=== PATIENT | female | born 1960 | race Caucasian/White ===

== ENCOUNTER → 2019-03-12 15:19 | Outpatient (CLI) | payer OTHER, MEDICAID, SELFPAY ==
--- NOTE | 2019-03-12 15:22 | DI.RAD.S_ITS ---
PROCEDURE: XR FOOT LT MIN 3V INDICATIONS: L 5th toe pain and swelling TECHNIQUE: The views of the foot were acquired. COMPARISON: None. FINDINGS: Bones: There is an oblique fracture involving the fifth proximal phalanx with no significant displacement. No suspicious bony lesions. Bipartite medial sesamoid. Soft tissues: No tibiotalar joint effusion. Achilles tendon appears normal. IMPRESSION: Nondisplaced oblique fracture of the fifth proximal phalanx. Dictated by: Agnes Barnes M.D. on 03/12/2019 at 16:05 Approved by: Agnes Barnes M.D. on 03/12/2019 at 16:07
== END ==
PROVIDERS: PCP Hospitalist; Visit Provider Hospitalist
DX: S92.515A Nondisplaced fracture of proximal phalanx of left lesser toe(s), initial encounter for closed fracture (principal); X58.XXXA Exposure to other specified factors, initial encounter
CPT/HCPCS: 73630

== ENCOUNTER → 2021-03-27 07:34 | Outpatient (CLI) | payer OTHER, MEDICAID, SELFPAY ==
[2021-03-27 09:24] LABS: Cholesterol 246 mg/dL (140-199); Glucose 94 mg/dL (70-100); HDL Cholesterol 110 mg/dL (40-60); LDL Cholesterol Calculated 127 mg/dL (<100); Triglycerides 44 mg/dL (35-150)
== END ==
PROVIDERS: PCP Family Medicine; Referring Provider Family Medicine; Visit Provider Family Medicine
DX: Z00.00 Encounter for general adult medical examination without abnormal findings (principal)
CPT/HCPCS: 36415; 80061; 82947

== ENCOUNTER 2023-06-24 09:00 | Outpatient (RCR) | payer OTHER, SELFPAY ==
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
--- NOTE | 2023-06-12 16:45 | PT.OPPOC ---
Physical, Occupational & Speech Therapy At [facility] Current Diagnoses Pain in unspecified shoulder (06/12/23) Weakness (06/12/23) Visit Care Team Role Provider Type Cheri Marie MD Attending Provider Physician Family Provider Primary Care Provider Referring Provider Specialty: Family Practice Address: [address] [place] [address], [id number] Email: [email or web address] Plan Of Care PT-OP-T Assessment and Plan Start: 06/12/23 09:47 Freq: Status: Active Protocol: Document 06/12/23 09:47 NM (Rec: 06/12/23 12:05 NM [id number]) Physical Therapy Assessment Rehab Potential Rehabilitation Potential Good Evaluation Complexity Number of Personal Factors/Comorbidities 1-2 Number of Body Systems Impaired 1-2 Clinical Presentation at Evaluation Stable Impairments Impairments Activity Tolerance, Coordination,Functional Activities,Functional Mobility ,Integument,Pain,Posture,ROM, Sensation,Soft Tissue Mobility ,Strength,Tone Goals Five Impairment strength Impairment R shoulder ER 3+/5 Confidential Secretary Goal (LTG) Pt will improve R shoulder ER strength to at least 4/5 in order to demonstrate improved strength needed for lifting and reaching. LTG Duration 6 weeks Four Impairment strength Impairment R shoulder flexion, IR 4-/5 MMT; abd 4/5 MMT Confidential Secretary Goal (LTG) Pt will improve R shoulder flexion and IR strength to at least 4+/5 in order to demonstrate improved strength needed for lifting LTG Duration 6 weeks Three Impairment strength Impairment R scapular strength 3+ MMT for ADD, 4- MMT for ABD Assisted Goal (LTG) Pt will improve R scapular strength globally to at least 4+/5 in order to demonstrate improved periscapular strength and mechanics. LTG Duration 6 weeks Two Impairment function Impairment waking due to pain at night Confidential Secretary Goal (LTG) Pt will report that she is able to sleep through the night without waking due to pain LTG Duration 6 weeks One Impairment function Impairment Quickdash 45.45% Confidential Secretary Goal (LTG) Pt will decrease quickdash score to less than 20% in order to demonstrate improved tolerance for ADLs and activity. LTG Duration 6 weeks Assessment Summary Assessment Pt is a 62 y.o. female presenting with chronic R shoulder pain and weakness beginning several years ago. She has not been using her R arm compared to her L arm due to pain. Pt's R shoulder is weaker than her L shoulder, but she reports that is due to disuse. Pain is worse with dressing, sleeping, and reaching. However, pt has full R shoulder AROM and PROM into flexion, abduction, external rotation. Limitations in R shoulder IR AROM, especially at 90 deg abduction. Pt has pain and minimal weakness with resisted flexion, abduction, and external rotation; no pain with resisted internal rotation. Positive for empty can and lift off tests, indicating significant weakness over possible subscapularis tear due to no pain with other resisted shoulder IR. Pt has atrophy of her R rotator cuff and other shoulder musculature from disuse; no evidence of nerve involvement as pt is able to perform active contraction. PT educated pt on exam findings, POC, and initiated gentle therapeutic exercise for strengthening. Pt tolerated scapular setting with retractions and roll backs in addition to gentle rows without pain or difficulty. She does report that positioning into scapular retraction posture is less stressful on her R shoulder. Pt would benefit from skilled PT to address pt's R shoulder strength, pain management, and activity tolerance in order to decrease pain symptoms, improve QOL, and return to PLOF. Physical Therapy Plan Frequency and Duration Frequency of Treatment 2x/Week Duration of treatment (weeks) 6 Plan of Care Start Date 06/12/23 Plan of Care End Date 07/25/23 Therapeutic Interventions Therapeutic Interventions Coordination Training,Home Exercise Program,Joint Mobilizations,Manual Therapy, Neuromuscular Re-education, Orthotic/Prosthetic Management ,Patient/Caregiver Education, Self-Care/Home Management, Sensory Integration,Soft Tissue Mobilization,Taping, Therapeutic Activities, Therapeutic Exercises Modalities Cold Pack/Ice Massage,Electric Stimulation,Hot Packs, Paraffin Bath,Ultrasound, Vasopneumatic Devices Other Referrals/Consults Referrals/Consults Recommended Depending on pt progression with exercise and pain management, pt will be referred back for imaging and referral to ortho. Next Visit Focus/Plan Next Note Type Treatment Note Next Visit Plan Rows (increase resistance), shoulder extension, AAROM IR, sidelying abd/flex scapular mechanics, prone IYTW Manual: soft tissue mobilization, grade I-II mobilizations for pain relief Plan of Care Dates Plan of Care Start Date 06/12/23 Plan of Care End Date 07/25/23 Electronically Signed by: Marichuy York, PT 06/12/23 [id number] If you are in agreement with this Plan of Care, please return a signed and dated copy. I have reviewed this Plan of Care and certify that the skilled therapy services above are required to meet the patient?s needs. Physician Signature Date Printed Name and Credentials Clinical Instructor Signature Printed Name and Credentials
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
== END 2024-01-27 14:52 | disposition home or self-care (01) ==
LOC: PHYS 09:00
PROVIDERS: Family Provider Family Medicine; PCP Family Medicine; Referring Provider Family Medicine; Visit Provider Family Medicine
DX: M25.519 Pain in unspecified shoulder (principal); R53.1 Weakness
CPT/HCPCS: 97110; 97140; 97161